=== PATIENT | female | born 1970 | race Caucasian/White ===

== ENCOUNTER 2024-02-29 14:59 | Outpatient (CLI) | payer BC | END 2024-02-29 15:00 | disposition home or self-care (01) | LOC: CSHMAMMO 14:59 | PROVIDERS: ATTEND Internal Medicine Rheumatology | DX: M81.0 Age-related osteoporosis without current pathological fracture (principal); M85.851 Other specified disorders of bone density and structure, right thigh | CPT/HCPCS: 77080 ==